=== PATIENT | female | born 1985 | race Caucasian/White ===

== ENCOUNTER 2021-02-14 22:42 | Emergency (ER) | payer OTHER ==
[2021-02-14 23:19] LABS: HEMOGLOBIN 14.6 gm/dl (12.3-15.3); RED BLOOD COUNT 4.72 M/UL (4.00-5.10); WHITE BLOOD COUNT 10.3 K/UL (4.5-11.0)
[2021-02-14 23:42] LABS: BUN/CREATININE RATIO 16 (0-10)
== END 2021-02-15 02:50 | disposition home or self-care (01) ==
LOC: ER1 22:42
PROVIDERS: Internal Medicine
DX: R07.9 Chest pain, unspecified (principal); R00.0 Tachycardia, unspecified; R00.2 Palpitations; I10 Essential (primary) hypertension; K21.9 Gastro-esophageal reflux disease without esophagitis
CPT/HCPCS: 71046; 80053; 80307; 81001; 84439; 84443; 84484; 85025; 93005; 99285

== ENCOUNTER → 2021-02-16 | Outpatient (CLI) | payer OTHER | LOC: HEART 5 11:13 | DX: R07.9 Chest pain, unspecified (principal) ==

== ENCOUNTER → 2021-03-09 | Outpatient (CLI) | payer OTHER | LOC: HEART 5 10:30 | DX: R00.0 Tachycardia, unspecified (principal); I08.1 Rheumatic disorders of both mitral and tricuspid valves | CPT/HCPCS: 93306 ==

== ENCOUNTER → 2021-05-06 | Outpatient (CLI) | payer OTHER | LOC: HEART 5 13:50 | DX: R00.0 Tachycardia, unspecified (principal) ==

== ENCOUNTER → 2021-06-04 | Outpatient (CLI) | payer OTHER | LOC: CATH 10:00 | DX: R00.0 Tachycardia, unspecified (principal) ==

== ENCOUNTER → 2021-06-23 | Outpatient (CLI) | payer OTHER | LOC: KOH-I 13:26 | DX: J32.9 Chronic sinusitis, unspecified (principal) | CPT/HCPCS: 70486 ==

== ENCOUNTER 2022-04-04 20:11 | Emergency (ER) | payer OTHER | END 2022-04-04 21:41 | disposition left against medical advice (07) | LOC: ER1 20:11 | DX: Z53.21 Procedure and treatment not carried out due to patient leaving prior to being seen by health care provider (principal) ==

== ENCOUNTER 2022-06-04 14:35 | Emergency (ER) | payer OTHER ==
[2022-06-04 15:08] LABS: HEMOGLOBIN 14.6 gm/dl (12.3-15.3); RED BLOOD COUNT 4.65 M/UL (4.00-5.10); WHITE BLOOD COUNT 15.2 K/UL (4.5-11.0)
[2022-06-04 15:35] LABS: BUN/CREATININE RATIO 14 (0-10)
[2022-06-04] MEDS ORDERED: TORADOL 10 MG T10 MG PO (19:37)
== END 2022-06-04 20:20 | disposition home or self-care (01) ==
LOC: ER1 14:35
PROVIDERS: Physician Assistant
DX: R07.2 Precordial pain (principal); R00.0 Tachycardia, unspecified; E78.5 Hyperlipidemia, unspecified; I10 Essential (primary) hypertension; K21.9 Gastro-esophageal reflux disease without esophagitis; Z88.1 Allergy status to other antibiotic agents; Z79.899 Other long term (current) drug therapy; Z20.822 Contact with and (suspected) exposure to COVID-19
CPT/HCPCS: 71045; 80053; 81001; 82550; 82553; 83690; 84484; 84703; 85025; 85379; 87086; 93005; 96374; 99285; J1885; U0002